=== PATIENT | female | born 1955 | race African-American/Black ===

== ENCOUNTER 2018-07-30 01:28 | Emergency (ER) | payer SELFPAY ==
[2018-07-30 01:41] VITALS: BMI 39.0
--- NOTE | 2018-07-30 01:42 | PDOC ---
History of Present Illness - History of Present Illness Initial Comments: 07/30/18 01:59 The patient is a 63 year old female with a PMH of arthritis who presents to the ED c/o acute onset of RLE pain. Patient states she was sleeping when she suddenly woke up around 11 p.m. with a pulling pain in her L calf. Patient attempted to stand up but could not bear weight. No h/o similar pain. <Soraya Flores - Last Filed: 07/30/18 03:27> <Luz Carmichael - Last Filed: 07/30/18 04:35> - General Chief Complaint: Pain Stated Complaint: LEG SWELLING, LEG PAIN Time Seen by Provider: 07/30/18 01:42 Past History - Suicide/Smoking/Psychosocial Hx Smoking History: Never smoked Have you smoked in the past 12 months: No Information on smoking cessation initiated: No Hx Alcohol Use: No Drug/Substance Use Hx: No <Soraya Flores - Last Filed: 07/30/18 03:27> *Physical Exam - Vital Signs Last Vital Signs Temp Pulse Resp BP Pulse Ox 98.7 F 84 18 150/72 98 07/30/18 01:35 07/30/18 01:35 07/30/18 01:35 07/30/18 01:35 07/30/18 01:35 <Soraya Flores - Last Filed: 07/30/18 03:27> - Vital Signs Last Vital Signs Temp Pulse Resp BP Pulse Ox 98.7 F 84 18 150/72 98 07/30/18 01:35 07/30/18 01:35 07/30/18 01:35 07/30/18 01:35 07/30/18 01:35 <Luz Carmichael - Last Filed: 07/30/18 04:35> ED Treatment Course - LABORATORY CBC & Chemistry Diagram: 07/30/18 03:20 - ADDITIONAL ORDERS Additional order review: Laboratory Results 07/30/18 03:20 Sodium 142 Potassium 4.0 Chloride 110 H Carbon Dioxide 26 Anion Gap 7 L BUN 16 Creatinine 0.8 Est GFR (CKD-EPI)AfAm 91.58 Est GFR (CKD-EPI)NonAf 79.01 Random Glucose 111 H Calcium 8.8 Total Bilirubin 0.3 AST 17 ALT 25 Alkaline Phosphatase 82 Total Protein 7.1 Albumin 3.6 <CleoGerri mejíaLuzsonya Delacruz - Last Filed: 07/30/18 04:35> Medical Decision Making - Medical Decision Making 07/30/18 02:01 63 year old female with acute onset of RLE pain. Amado's sign equivocal. Will obtain RLE duplex to r/o DVT. 07/30/18 03:21 Duplex negative for DVT and Schmid's cyst. 07/30/18 03:27 At this time, clinical suspicion for muscle spasm. Will confirm no electrolyte (Ca+, K+) abnormality and discharge home. CMP pending <Soraya Flores - Last Filed: 07/30/18 03:27> *DC/Admit/Observation/Transfer <Soraya Flores - Last Filed: 07/30/18 03:27> - Discharge Dispostion Decision to Admit order: No <AmolLuz Nubia - Last Filed: 07/30/18 04:35> Diagnosis at time of Disposition: Leg cramp - Discharge Dispostion Disposition: HOME Condition at time of disposition: Stable - Referrals Referrals: Grzegorz Flores [Primary Care Provider] - - Patient Instructions Printed Discharge Instructions: DI for Nocturnal Leg Cramps
[2018-07-30 04:06] LABS: ALBUMIN 3.6 g/dl (3.4-5.0); BILIRUBIN,TOTAL 0.3 mg/dL (0.2-1); CALCIUM 8.8 mg/dL (8.5-10.1); CREATININE 0.8 mg/dL (0.55-1.3); TOT PROT 7.1 g/dl (6.4-8.2)
--- NOTE | 2018-07-30 04:31 | PDOC ---
Documentation entered by Celso Lopez SCRIBE, acting as scribe for Luz Carmichael DO. Luz Carmichael DO: This documentation has been prepared by the John masters Matthew, SCRIBE, under my direction and personally reviewed by me in its entirety. I confirm that the documentation accurately reflects all work, treatment, procedures, and medical decision making performed by me. Attending Attestation - Resident Resident Name: MarkSoraya - HPI HPI: 07/30/18 02:24 Patient is a 63 year old female with a significant past medical history of Arthritis, who presents to the ED with complaints of right leg pain that began just prior to ED arrival. Patient reports waking up tonight, after experiencing sudden right calf pain. She reports right calf pain is a sharp constant pain, stating she attempted to bear weight on the leg shortly after the pain began, when she found she was unable to she came into the ED for further evaluation. Denies chest pain, sob. Denies nausea, vomiting. Denies contact with sick individuals, out of state travelling. Denies dysuria, hematuria. Denies constipation, diarrhea. Denies any other symptoms. Allergies: NKDA. Social history: lives with . No smoking. No alcohol. No illicit drugs. Surgical history: None PMD: None - Physicial Exam PE: 07/30/18 02:24 Agree with residents Physical Exam. - Medical Decision Making 07/30/18 04:30 63-year-old female with sudden onset of right calf pain while sleeping Ultrasound shows no DVT Potassium is within normal limits Examination history likely consistent with acute gastrocnemius spasm which has now resolved Plan discharge home with outpatient primary care follow-up
[2018-07-30] MEDS ORDERED: KETOROLAC TROMETHAMINE 15 MG/ML VIAL IM ONE (04:55)
[2018-07-30 04:57] VITALS: BP 140/87; PULSE 89; TEMP 98.2
[2018-07-30] MEDS ORDERED: KETOROLAC TROMETHAMINE 15 MG/ML VIAL ONE (04:59)
== END 2018-07-30 05:03 | disposition home or self-care (01) ==
LOC: JER 01:28
PROC: 3E0233Z Introduction of Anti-inflammatory into Muscle, Percutaneous Approach (ICD-10-PCS; principal; 2018-07-30)
DX: R25.2 Cramp and spasm (principal); M19.90 Unspecified osteoarthritis, unspecified site
CPT/HCPCS: 36415; 80053; 93971-TC; 99283-25